=== PATIENT | female | born 1995 | race Two or more races ===

== ENCOUNTER 2017-12-15 05:29 | Emergency (ER) | payer SELFPAY ==
[~2017-12-15] VITALS: Ht 170.2 cm; Wt 119.2 kg
[2017-12-15 05:44] VITALS: BP 126/76
== END 2017-12-15 08:02 | disposition left against medical advice (07) ==
LOC: ER 05:29
DX: Z11.3 Encounter for screening for infections with a predominantly sexual mode of transmission (principal); Z53.21 Procedure and treatment not carried out due to patient leaving prior to being seen by health care provider

== ENCOUNTER 2023-06-06 18:10 | Emergency (ER) | payer MEDICAID, OTHER ==
[~2023-06-06] VITALS: Ht 175.3 cm; Wt 108.0 kg
[2023-06-06 18:18] VITALS: BP 149/89; O2SAT 98
[2023-06-06 19:39] LABS: CLARITY URINE CLEAR (CLEAR); COLOR URINE DARK YELLOW (YELLOW); GLUCOSE URINE NEGATIVE (NEGATIVE); KETONES URINE NEGATIVE (NEGATIVE); LEUKOCYTE ESTERASE URINE TRACE (NEGATIVE); NITRITE URINE NEGATIVE (NEGATIVE); OCCULT BLOOD URINE 3+ (NEGATIVE); PROTEIN URINE 2+ (NEGATIVE); SPECIFIC GRAVITY URINE 1.032 (1.005-1.030)
[2023-06-06 19:51] LABS: BACTERIA URINE 1+; SQUAMOUS EPITHELIAL CELL URINE 1+ /lpf (RARE/1+); YEAST URINE NONE SEEN
[2023-06-06] MEDS ORDERED: ACYC200C31 MT (20:27)
[2023-06-06] MEDS ORDERED: VALA10002 MT (21:03)
[2023-06-06 21:08] VITALS: PULSE 90; RESP 20; TEMP 98.8
[2023-06-09 15:09] LABS: CHLAMYDIA TRACHOMATIS NAA Negative (Negative); NEISSERIA GONORRHOEAE NAA Positive (Negative)
== END 2023-06-06 21:09 | disposition home or self-care (01) ==
LOC: ER 18:10
DX: Z11.3 Encounter for screening for infections with a predominantly sexual mode of transmission (principal)
CPT/HCPCS: 81003; 81025; 87491; 87591; 99283

== ENCOUNTER 2024-02-28 00:42 | Emergency (ER) | payer MEDICAID, OTHER ==
[~2024-02-28] VITALS: Ht 170.2 cm; Wt 113.0 kg
[~2024-02-28 00:42] MED LIST: VALA10002 MT
[2024-02-28 01:05] VITALS: BP 131/86; PULSE 102; RESP 16; TEMP 98.6; O2SAT 100
[2024-02-28] MEDS ORDERED: VALA10002 MT (01:31)
== END 2024-02-28 01:35 | disposition home or self-care (01) ==
LOC: ER 00:42
DX: N89.8 Other specified noninflammatory disorders of vagina (principal); Z76.0 Encounter for issue of repeat prescription
CPT/HCPCS: 99281